=== PATIENT | female | born 1995 | race Caucasian/White ===

== ENCOUNTER 2016-10-03 12:06 | Emergency (ER) | payer OTHER ==
[~2016-10-03] VITALS: Ht 170.2 cm; Wt 63.6 kg
[2016-10-03 12:20] VITALS: BP 131/85; PULSE 74; RESP 16; O2SAT 98
[2016-10-03] MEDS ORDERED: MEDR150D9 IM (12:24)
[2016-10-03] MEDS ORDERED: CALC600T12 PO (12:24)
--- NOTE | 2016-10-03 14:20 | ED.REPORT ---
HPI-Back Pain Under 40 Date of Service October 03, 2016 ED Provider: Joi Marina MD. Patient is a 21 year old female with a history of chronic back pain for the past year who presents to the ED complaining of lower back pain onset a week ago. Associated symptoms include pain that radiates down her left leg, numbness around the area of her back that is hurting and weakness of her left leg for the past 4 days. She denies fever. She reports that the pain has gotten progressively worse over the past week and that the pain feels different than the chronic pain she's felt over the past year.. The patient saw her primary care physician 4 days ago and again this morning, who recommended she come to the ED. Patient reports that she has not had any recent skin infections. Nursing Notes Stated Complaint: LOW BACK PAIN,HOPING TO GET MRI,CBC & PAIN RELIEF Chief Complaint: Back Pain or Injury Nursing Notes Reviewed: Yes Allergies: Coded Allergies: No Known Allergies (Verified Allergy, Unknown, 10/03/16) Scheduled Calcium Carbonate (Calcium) 600 Mg Tablet 600 MG PO DAILY Medroxyprogesterone Acetate (Depo-Provera) 150 Mg/1 Ml Syringe 150 MG IM [id number] General Time Seen by MD: 14:20 Chief Complaint Back pain Hx Obtained From: Patient Arrived By: Walk-in Sudden in Onset?: No Onset Occurred: 1 week ago Radiation: : Left leg above knee: Left leg below knee Associated with: Reports: Numbness left low ext, Tingling left lower ext, Weakness left lower ext Recent Healthcare: No recent hospitalization, Recent doctor visit Similar Sx Previous: Yes Past Medical History Past Medical History chronic back pain Asthma Hx of depression and suicidal ideations Past Surgical History Reports: Tonsillectomy Family History father- back surgery 5x Smoking History Former Smoker Social History Alcohol Use: "Social" Drug Use: Denies drug use, THC Other Social History: Good social support, Local resident Ambulatory Status Independent Review of Systems Constitutional: Denies: Fever Respiratory: Denies: Non-productive cough, Shortness of breath Musculoskeletal: Reports: Back pain, Extremity pain (left leg) Neurologic: Reports: Numbness, Problem walking (unable to put pressure on left leg), Weakness (of left leg) Complete sys rev & neg: except as marked. Physical Exam Initial Vital Signs Vital Signs (First) Date Time Temp Pulse Resp B/P Pulse Ox O2 Delivery O2 Flow Rate FiO2 10/03/16 12:20 36.7 74 16 131/85 98 Room Air Initial VS: Reviewed General/Constitutional: Awake, Alert, No acute distress BACK: exquisite point tenderness at L2 and superficial tenderness laterally on both sides without any muscle spasms touching L2 does not cause radicular pain Neurologic: Oriented X3, Speech NL, No motor deficits, No sensory deficits full sensation in the perineum Respiratory / Chest: Atraumatic, Breath sounds NL, Breath sounds = bilat, No respiratory distress Cardiovascular: Heart rate NL, Regular rhythm, Heart sounds NL Lower Extremities: moving left leg at all from toes to ankle, all the way up, sends shooting pain up back. no radiating pain down. Head / Eyes: Atraumatic, Normocephalic, PERRL, EOMI Skin: Atraumatic, Color NL, No rash, Warm, Dry no erythema or other skin discolorations on back or otherwise Psychiatric: Affect NL, Mood NL Interpretation & Diagnostics Lab Results Interpretation Test 10/03/16 13:40 10/03/16 14:44 Urine Color Yellow (YELLOW) Urine Appearance Hazy (CLEAR,HAZY) Urine pH 6.0 (5.0-8.0) Urine Specific [place] 1.025 (1.003-1.035) Urine Protein Negativemg/dL (NEG,TRACE) Urine Glucose (UA) Negativemg/dL (NEGATIVE) Urine Ketones Tracemg/dL (NEGATIVE) Urine Occult Blood Negative (NEGATIVE) Urine Nitrite Negative (NEGATIVE) Urine Bilirubin Negative (NEGATIVE) Urine Urobilinogen Normalmg/dL (NORMAL) Urine Leukocyte Esterase Negative (NEGATIVE) Urine RBC 0-2/hpf (0-2) Urine WBC 0-5/hpf (0-5) Urine Epithelial Cells Occasional/hpf (NONE-MOD) Urine Crystals None seen (NONE SEEN) Urine Bacteria Moderate/hpf (NONE-FEW) Urine Hyaline Casts None/lpf (NONE) Urine Granular Casts None seen (NONE SEEN) Urine Waxy Casts None seen (NONE SEEN) Urine Red Blood Cell Casts None seen (NONE SEEN) Urine White Blood Cell Casts None seen (NONE SEEN) Urine Mucus Present (None Seen) Urine Trichomonas None seen (NONE SEEN) Urine Yeast None (NONE SEEN) Urinalysis Comment None Urine Culture Reflexed Indicated Discharge & Departure All VS Reviewed: Yes Condition: Stable Referrals: Ingrid Lee (PCP) Umu Attestation Portions of this note were transcribed by Manda Wayne. I, Dr. Marina personally performed the history, physical exam and medical decision-making; I reviewed and confirmed the accuracy of the information in the transcribed note. Signed by: Umu Olivier, 10/03/16 and 1500 copies to: Ingrid Lee Shawna L MD October 03, 2016 14:20 Katelyn Wayne October 03, 2016 14:57
[2016-10-03 14:58] LABS: APPEARANCE,URINE HAZY (CLEAR,HAZY); COLOR,URINE YELLOW (YELLOW); OCCULT BLOOD,URINE NEGATIVE (NEGATIVE)
[2016-10-03 14:59] LABS: UROBILINOGEN,URINE NORMAL (NORMAL)
[2016-10-03] MEDS ORDERED: HYDROmorphone 0.5 mg/0.5 mL iSecure Syringe IVPUSH PRN (15:15)
[2016-10-03 15:45] LABS: BASOPHILS % (AUTO) 0.4 % (0-3); EOSINOPHILS % (AUTO) 0.9 % (0-5); MONOCYTES % (AUTO) 7.4 % (4-12); Mean Corpuscular Hemoglobin 29.8 pg (27.0-35.0); Mean Corpuscular Volume 85.8 fL (81-100); NEUTROPHILS % (AUTO) 59.1 % (40-74); Platelet Count 204 bil/L (150-400)
[2016-10-03 16:43] LABS: ERYTHROCYTE SEDIMENTATION RATE 1 mm/hr (0-32)
--- NOTE | 2016-10-03 17:50 | DRSVH ---
PROCEDURE: MRI LUMBAR SPINE WITH AND WITHOUT CONTRAST ([id number]) INDICATIONS: Exquisite point tenderness L2 region TECHNIQUE: Noncontrast sagittal T1 spin echo and T2 fast spin echo, sagittal STIR, axial T1 and T2 fast spin ech o through the lumbar spine. In cases with scoliosis, additional coronal T2 fast spin echo may be per formed. After the administration of contrast, sagittal and axial T1 spin echo with fat saturation th rough the lumbar spine. COMPARISON: None. FINDINGS: Image quality: Excellent. Alignment and curvature: There is normal bony alignment. No plain films are available for compariso n. Thus, 5 lumbar-type vertebral bodies will be presumed, as denoted on the montage panel. Recommend correlation with plain films for numbering purposes prior to any lumbar spinal intervention. Marrow: Marrow is of normal overall signal. No acute vertebral body compression fractures. No susp icious marrow enhancement. Spinal cord: Conus medullaris terminates at the L1 level. Visualized spinal cord demonstrates shanda l signal, without suspicious enhancement. Paraspinous soft tissues: No paravertebral masses or abnormal enhancement. L1-L2: Normal appearance. L2-L3: Normal appearance. L3-L4: Normal appearance. L4-L5: Normal appearance. L5-S1: Normal appearance. IMPRESSION: Negative lumbar spine MRI. No explanation for point tenderness at L2. Dictated by: Dottie Pulido M.D. on 10/03/2016 at 17:47 Approved by: Dottie Pulido M.D. on 10/03/2016 at 17:48
[2016-10-03] MEDS ORDERED: NAPR375T2 PO (18:08)
[2016-10-03] MEDS ORDERED: HYDR-4003 PO (18:08)
[2016-10-03 18:21] VITALS: BP 124/58; PULSE 74; RESP 16; O2SAT 99
== END 2016-10-03 18:22 | disposition home or self-care (01) ==
LOC: SED 12:06
DX: M54.5 Low back pain (principal); J45.909 Unspecified asthma, uncomplicated; Z87.891 Personal history of nicotine dependence
CPT/HCPCS: 36415; 72158; 80053; 81000; 81025; 85025; 85651; 86140; 87086; 87088; 96374; 96375; 99284; A9585; J1170; J1885; J3360